=== PATIENT | male | born 1945 | race Caucasian/White ===

== ENCOUNTER 2022-09-05 11:04 | Outpatient (CLI) | payer MEDICARE, SELFPAY ==
--- NOTE | ~2022-09-05 | XR_ITS ---
Lumbosacral Spine: AP and lateral views Clinical History: Pain Findings: There is posterior fusion hardware extending from L4 through S1, bilateral rods and transpe dicular screws present. There is severe degenerative disc narrowing at L3-L4, with moderate degenerat george disc narrowing at L2-L3. Mild to moderate compression fracture deformity of L1 is present. The sa croiliac joints are normally outlined. Impression: Mild to moderate compression deformity of and L1. Posterior fusion changes from L4 through S1, as detailed above. Moderate underlying degenerative spondylosis otherwise. Reviewed, dictated and finalized at location . Impression: Mild to moderate compression deformity of and L1. Posterior fusion changes from L4 through S1, as detailed above. Moderate underlying degenerative spondylosis otherwise.
== END 2022-09-05 11:05 | disposition home or self-care (01) ==
PROVIDERS: Visit Provider Neurological Surgery
DX: M48.062 Spinal stenosis, lumbar region with neurogenic claudication (principal); M47.816 Spondylosis without myelopathy or radiculopathy, lumbar region; Z98.1 Arthrodesis status
CPT/HCPCS: 72100

== ENCOUNTER 2022-09-28 08:16 | Outpatient (CLI) | payer MEDICARE, SELFPAY ==
--- NOTE | 2022-09-28 08:37 | ECG_ITS ---
Measurements Intervals [place] Rate: 84 P: 7 AR: 181 QRS: -22 QRSD: 92 T: -2 QT: 371 QTc: 441 Interpretive Statements SINUS RHYTHM BORDERLINE LEFT AXIS DEVIATION [QRS AXIS < -20] POSSIBLE RIGHT VENTRICULAR CONDUCTION DELAY [RSR (QR) IN V1/V2] NONSPECIFIC T-WAVE ABNORMALITY ABNORMAL ECG NO PREVIOUS ECG AVAILABLE FOR COMPARISON Electronically Signed On 09-28-2022 9:39:20 CDT by Dominic Jolley M.D.
[2022-09-28 09:11] LABS: Appearance Urine Clear (Clear); Bilirubin Urine Negative (Negative); Blood Urine Negative (Negative); Color Urine Yellow (Yellow); Glucose Urine UA Negative (Negative); Ketones Urine Negative (Negative); Leukocyte Esterase Ur Negative LEU/UL (Negative); Nitrate Urine Negative (Negative); Protein Urine Negative (Negative); Urobilinogen Urine 0.2 mg/dL (<2.0)
[2022-09-28 09:20] LABS: Anion Gap 7 mmol/L (8-16); Blood Urea Nitrogen 17 mg/dL (9-20); Calcium 9.2 mg/dL (8.4-10.2); Carbon Dioxide 28 mmol/L (22-30); Chloride 103 mmol/L (98-107); Estimated Glomerular Filt Rate > 60; Glucose 108 mg/dL (65-110); Potassium 4.6 mmol/L (3.4-5.0); Sodium 138 mmol/L (137-145)
[2022-09-28 09:25] LABS: Hemoglobin A1C 5.7 % (<5.7)
[2022-09-28 09:28] LABS: Prothrombin Time 13.6 Seconds (11.1-14.7)
[2022-09-28 09:29] LABS: Partial Thromboplastin Time 31.2 SECONDS (22.3-36.8)
[2022-09-28 09:36] LABS: Add Urine Microscopic? NO
[2022-09-28 09:38] LABS: Hematocrit 39.7 % (42.0-52.0); Hemoglobin 12.3 g/dL (14.0-18.0); Mean Corpuscular Hemoglobin 27.6 pg (26-34); Mean Corpuscular Volume 89.2 fl (80-100); Mean Platelet Volume 9.5 fl (7.4-10.4); Platelet Count Result 306 k/mm3 (150-375); Red Blood Count 4.45 M/mm3 (4.6-6.20); Red Cell Distribution Width 15.1 % (11.5-14.5); White Blood Count 10.9 K/mm3 (4.5-10.0)
== END 2022-09-28 08:17 | disposition home or self-care (01) ==
LOC: ANHSURGERY 08:23
PROVIDERS: PCP Family Medicine; Visit Provider Neurological Surgery
DX: M48.062 Spinal stenosis, lumbar region with neurogenic claudication (principal); I10 Essential (primary) hypertension; Z01.818 Encounter for other preprocedural examination; R94.31 Abnormal electrocardiogram [ECG] [EKG]
CPT/HCPCS: 36415; 80048; 81003; 83036; 85027; 85610; 85730; 86850; 86900; 86901; 93005

== ENCOUNTER 2022-10-04 12:41 | Inpatient (IN) | payer MEDICARE, SELFPAY ==
--- NOTE | 2022-09-23 14:13 | PC.NURSE ---
Report to the Outpatient Waiting Room, entrance under the green pavilion located off [facility], at time 0600 on date __10/04/22 . Planned Procedure Time: _0800 . Time changes happen often and if your time is changed the preop area will call you the afternoon before. - You and your visitor will be asked to self-screen and do not enter if you have any COVID symptoms. - A mask is optional within the hospital at this time. Patients may have clear liquids (water, carbonated beverages, clear teas, apple juice) until 3 hours prior to surgery with a maximum of 20 ounces. - No food from midnight until time of surgery - Infants may have breast milk until 4 hours before surgery, formula 6 hours prior to surgery. - Children will be allowed to drink immediately following surgery. If applicable, please bring a bottle or sippy cup to assist with drinking. Juice, water, soda, and popsicles are readily available. For infants on formula, please bring formula the day of surgery. Pacifiers are allowed. Take the following medications with a SIP of water the morning of surgery: ____AMLODIPINE, DO NOT STOP ANY OF YOUR OTHER PRESCRIPTION MEDICATIONS PRIOR TO SURGERY ?EXCEPT THE FOLLOWING Medications to discontinue per physician ___PLAVIX AND ASPIRIN 7 DAYS PRE OP PER DR CANTU.LAST DOSE 09/26/22 MULTIVITAMINS HOLD 3 DAYS PRE OP.LAST DOSE 10/01/22 Please no make-up, nail vietnamese, hairspray, perfume, deodorant, or body powder the day of surgery. No jewelry (including any body piercings) or valuables the day of surgery, leave them at home. Please take a shower or bath the night before, or the morning of, surgery with an antibacterial soap. Wear comfortable, loose fitting clothing. Children are encouraged to wear pajamas. - Jewelry must be removed prior to entering the operating room. Rings and piercings that are not removed may be cut off. - The hospital will not accept responsibility for valuables. - Please leave all valuables, including medications, at home the day of surgery. If you are going home after surgery, a licensed driver wheelchair must drive you home. - NO public transportation without another adult if you receive anesthesia. - We recommend that an adult stay with you for 24 hours following discharge. - We also recommend that you do not drive, make important decision, drink alcoholic beverages, or take any drugs that were not prescribed by your health care provider for at least 24 hours after your discharge time. For Pediatric surgeries, we recommend two adults accompany the child home. Follow any additional instructions given to you from your surgeon. If you or anyone in your household have experienced Covid symptoms in the past week, please notify your surgeon or the nurse liaison at the phone number below for possible testing. Telephone instructions given to ___PATIENT and asked if any additional questions and then verbalized understanding. Patient advised to call surgeon office or pre surgery nurse liaison [phone] if any additional questions.
[2022-09-23 14:25] VITALS: BMI 26.5
--- NOTE | 2022-10-03 14:49 | WPDANESEPPF ---
Anes - Initial Pre Proc Eval Procedure: Operation Date: 10/04/22 08:00 Proposed Procedures p L2-3 Laminectomy, L3-4 Posterior Lumbar Interbody Fusion - Jon Romero MD Date/Time: 10/03/22 14:49 Surgeon: Jon Romero MD Pre Op Diagnosis: L3,4 junctional stenosis, L2,3 Stenosis Patient Data Age: 77 Gender: M Height: 1.78 m Weight: 83.95 kg Allergies Allergy/AdvReac Type Severity Reaction Status Date / Time No Known Allergies Allergy Verified 10/04/22 06:46 Home Medications Medication Instructions Recorded Confirmed Type amlodipine 5 mg tablet 5 mg PO DAILY 05/16/22 10/04/22 History aspirin 81 mg tablet,delayed 81 mg PO DAILY 05/16/22 10/04/22 History release atorvastatin 80 mg tablet 80 mg PO DAILY 05/16/22 09/23/22 History benazepril 20 mg tablet 20 mg PO DAILY 05/16/22 09/23/22 History clopidogrel 75 mg tablet 75 mg PO DAILY 05/16/22 10/04/22 History hydrocodone 5 mg-acetaminophen 325 1 - 2 tablet PO Q4H PRN pain #30 09/05/22 09/23/22 Rx mg tablet tabs metformin 500 mg tablet,extended 500 mg PO DAILY 09/23/22 09/23/22 History release 24 hr multivitamin 1 tablet PO DAILY 09/23/22 10/04/22 History Patient hx anesthesia problems: none Family hx anesthesia problems: none Results Review: All pre-operative results and documents have been reviewed as part of the pre-operative evaluation. [facility] Past Medical History Medical History (Updated 10/03/22 @ 14:50 by Gregorio Trejo DO) 1st MTP arthritis Allergies Anemia Asthma CAD (coronary artery disease) COPD (chronic obstructive pulmonary disease) Diabetes type 2, controlled Hyperlipidemia Hypertension PVD (peripheral vascular disease) Surgical History Surgical History (Updated 10/03/22 @ 14:50 by Gregorio Treoj DO) H/O endarterectomy History of coronary artery stent placement [id number] History of lumbar fusion (~2020) Family History Family History Other Hypertension Social History Social History Smoking packs per day: 1 Smoking cigarettes per day: 20.0 Years smoked: 20 Smoking pack-years: 20.00 Smoking status: Former smoker Tobacco type: cigarettes Smoking end date: 04/24/16 Alcohol intake: current Drinks per week: 4 Substance use: never Substance use type: does not use Lack of Transportation: No Lack of Food: Never True Current Housing: I Have Housing Concerned About Future Housing: No Difficulty Paying Gas/Electric Bills: No Difficulty Paying for Meds: No Currently Unemployed: No Education: Decline to Answer Difficulty w/ Childcare or Family Care: No Living arrangements: with family Spiritual care concerns: No Anes - Eval Final PreProcedure Day of Procedure 10/03/22 14:49 Patient weight: overweight Heart: regular rate and rhythm Lungs: clear to auscultation Airway: Mallampati scale class II Neurological: alert and oriented Last oral intake: >/= 8 hours ASA classification: III Emergent: no Anesthetic plan: proceed Anesthesia type and monitoring: general ETT and standard monitoring Results Review: All pre-operative results and documents have been reviewed as part of the pre-operative evaluation. Informed Consent: The patient's anesthetic plan and its attendant risks and benefits were discussed with the patient/family/POA. Questions were solicited and answers provided to the satisfaction of the patient/family/POA.
[2022-10-04] VITALS (12 sets, daily range): BP systolic 95–136; BP diastolic 53–93; PULSE 75–105; RESP 12–18; TEMP 36.2–36.9; O2SAT 94–100; BMI 26.7
--- NOTE | ~2022-10-04 | XR_ITS ---
XR fluoroscopy no charge Pain management procedure TECHNIQUE: Fluoroscopy used during laminectomy performed by [Jon Romero MD] on 10/04/2022 . 3 seconds of fluoroscopy with 2 images captured. FINDINGS: There are changes of lumbar fusion at L3-S1 with prosthetic disc devices at L3-4, L4-5 and L5-S1. Correlate with procedure note. IMPRESSION: Fluoroscopy used during laminectomy and lumbar spine fusion procedure. Reviewed, dictated and finalized at location L. IMPRESSION: Fluoroscopy used during laminectomy and lumbar spine fusion procedu re.
[2022-10-04] MEDS: LACTATED RINGERS 1,000 ML 30 ML IV CONT ×2 (06:35→11:24)
[2022-10-04 06:46] LABS: Glucose Point of Care 112 mg/dl (65-105)
--- NOTE | 2022-10-04 08:10 | PM.IMHP ---
H&P: HPI History of Present Illness Date/Time: 10/04/22 08:10 Chief Complaint: Back and leg pain Narrative: Toni is a 77-year-old gentleman with back and leg pain related to junctional stenosis at L3-4 and stenosis at L2-3 who presents for L3-4 posterior lumbar interbody fusion L2-3 laminectomy. He has not changed appreciably since we last saw him. He does not have specific muscle group weakness or dermatomal numbness. Is not having bowel or bladder difficulty. Review of Systems Review of Systems: Patient denies shortness of breath, cough, fever, chills, nausea, vomiting, weight loss, weight gain, chest pain, dysuria. He has back and leg pain as above. His review of systems is otherwise negative on 12 systems except as noted elsewhere. [facility] Past Medical History Medical History (Updated 10/03/22 @ 14:50 by Gregorio Trejo DO) 1st MTP arthritis Allergies Anemia Asthma CAD (coronary artery disease) COPD (chronic obstructive pulmonary disease) Diabetes type 2, controlled Hyperlipidemia Hypertension PVD (peripheral vascular disease) Surgical History Surgical History (Updated 10/03/22 @ 14:50 by Gregorio Trejo DO) H/O endarterectomy History of coronary artery stent placement [id number] History of lumbar fusion (~2020) Family History Family History Other Hypertension Social History Social History Smoking packs per day: 1 Smoking cigarettes per day: 20.0 Years smoked: 20 Smoking pack-years: 20.00 Smoking status: Former smoker Tobacco type: cigarettes Smoking end date: 04/24/16 Alcohol intake: current Drinks per week: 4 Substance use: never Substance use type: does not use Lack of Transportation: No Lack of Food: Never True Current Housing: I Have Housing Concerned About Future Housing: No Difficulty Paying Gas/Electric Bills: No Difficulty Paying for Meds: No Currently Unemployed: No Education: Decline to Answer Difficulty w/ Childcare or Family Care: No Living arrangements: with family Spiritual care concerns: No Meds Home Medications and Allergies Home Medications Medication Instructions Recorded Confirmed Type amlodipine 5 mg tablet 5 mg PO DAILY 05/16/22 10/04/22 History aspirin 81 mg tablet,delayed 81 mg PO DAILY 05/16/22 10/04/22 History release atorvastatin 80 mg tablet 80 mg PO DAILY 05/16/22 09/23/22 History benazepril 20 mg tablet 20 mg PO DAILY 05/16/22 09/23/22 History clopidogrel 75 mg tablet 75 mg PO DAILY 05/16/22 10/04/22 History hydrocodone 5 mg-acetaminophen 325 1 - 2 tablet PO Q4H PRN pain #30 09/05/22 09/23/22 Rx mg tablet tabs metformin 500 mg tablet,extended 500 mg PO DAILY 09/23/22 09/23/22 History release 24 hr multivitamin 1 tablet PO DAILY 09/23/22 10/04/22 History Allergies Allergy/AdvReac Type Severity Reaction Status Date / Time No Known Allergies Allergy Verified 10/04/22 06:46 Vital Signs Vital Signs - 24 hr 10/04/22 06:05 Temperature 97.2 F L Pulse Rate 90 Respiratory Rate 16 Blood Pressure 136/77 Pulse Oximetry 100 Oxygen Delivery Room Air Exam Narrative: Strength is 5/5 in all muscle groups of the bilateral lower extremities. Sensation is intact to light touch throughout the lower extremities. Breathing is nonlabored Regular rate and rhythm Assessment and Plan Assessment and plan (1) Lumbar stenosis with neurogenic claudication: Code(s): M48.062 - Spinal stenosis, lumbar region with neurogenic claudication Status: Acute (2) Lumbar spondylosis: Code(s): M47.816 - Spondylosis without myelopathy or radiculopathy, lumbar region Status: Acute (3) Status post lumbar spinal fusion: Code(s): Z98.1 - Arthrodesis status Status: Acute Plan Toni is a 77-year-old gentleman with back and leg pain related
--- NOTE | 2022-10-04 08:12 | WPDHPUPDATE1 ---
History and Physical Update Update Date/Time: 10/04/22 08:12 History and Physical has been reviewed, including an updated exam of the patient. There are NO changes in the patient's condition. Risks, benefits, and alternatives have been discussed and questions answered. Patient agrees to proceed with procedure.
[2022-10-04] MEDS: ceFAZolin 2 GM/D5W 50 ML 2 GM/50 ML BAG IVPB (08:29)
[2022-10-04] MEDS: LIDO 1%/EPINEPHRINE 1:100,000 50 ML VIAL 20 ML INFILTRATE (09:47)
--- NOTE | 2022-10-04 11:26 | W.PM.PROC2 ---
Procedure Note - Detailed Date of Procedure 10/04/22 Pre-op Diagnosis L3,4 junctional stenosis, L2,3 Stenosis Post-op Diagnosis Same Procedure Performed L2-3 and L3-4 complete laminectomy, L3-4 complete diskectomy and interbody arthrodesis utilizing titanium interbody devices and local autograft, L3-4 pedicle screw instrumentation with attachment previous instrumentation below Surgeon Jon Romero MD Clerk [employer] [address] Susan Anesthesia General Description of Procedure Patient was brought to the operating room in the supine position, was sedated, intubated placed under general anesthesia in routine fashion. He was then turned into the prone position on Cyril frame. The of operation is back was examined, marked for incision, prepped and draped in routine sterile fashion. Incision was marked over the L2-3 5 spinous processes in the midline. This area was injected with 0.5% lidocaine with [id number] epinephrine. Intravenous antibiotics given prior to incision. Incision was made with a 10 blade scalpel down to the lumbodorsal fascia. A subperiosteal dissection of the muscle soft tissue with the spinous process and lamina at L2-3 and L3-4 was performed with a subperiosteal elevator and Bovie cautery. A verifying x-rays obtained to verify the level of operation. The L2 and L3 spinous processes were removed with Sushila rongeur. Kerrison punches, curved curette and a Leksell rongeur were used to remove lamina in the midline to the soft contents of the canal were encountered. At L3-4 Midas-Jayesh drill was used to resect the pars bilaterally. The inferior articular process facet of L3 could then be removed bilaterally. These +spinous processes were morselized for later use as interbody autograft. Kerrison punches and curved curettes were used to define a plane with the dura and removed bone and ligament flush with the pedicle and through the foramina widely decompressing exiting nerve roots. With the thecal sac retracted and protected the disc spaces under bilaterally using 11 blade scalpel. Scrapers a very sizes, curettes of various configurations, pituitary rongeur and a rasp were used to remove as much cartilaginous endplate and disc material as possible down to bleeding cortical flat surfaces on the opposing bones. The disc spaces in size at 8 mm interbody devices were chosen and filled with local autograft bone. The disc space was likewise filled with local autograft bone medially and anteriorly. The interbody devices were then placed with the mm countersink within the disc space bilaterally. Pedicle screws mentation was then performed at L3 by observing and palpating the pedicle awl hole was made and superior articular process of the pedicle using Midas Jayesh drill. The pedicle was then cannulated pedicle probe, checked for continuity with the ball probe, tapped with 5.5 mm tap and 6.5 x 50 mm screw was placed in each pedicle. Lateral connectors were placed between L4-L5 and secured in position using the appropriate caps. Rods placed into the screw heads and to the lateral connector and secured in position using the appropriate caps. These were then all definitively tightened to torque and anti torque device. A verifying x-rays obtained read by good position of the instrumentation was confirmed. Wound was then copiously irrigated with bacitracin irrigation all bleeding stopped bipolar and Bovie cautery and Gelfoam powder. A medium Hemovac drain was then left in the subfascial position buried at the inferior right of the incision. The was then closed in layered fashion with 2-0 Vicryl interrupted sutures in the lumbodorsal fascia and Addie's layer. 3-0 Vicryl buried interrupted sutures were placed in the dermis the skin was closed with a running 4-0 Monocryl subcuticular stitch and dressed with Dermabond. The patient was loud wake up in the operating room was taken to the recovery room in stable condition. There were no immediate complications this oper
[2022-10-04 11:33] LABS: Glucose Point of Care 159 mg/dl (65-105)
[2022-10-04] MEDS: fentaNYL CITRATE INJ (*CRX) 100 MCG/2 ML VIAL 25 MCG IV PUSH ×4 (11:59→12:24)
--- NOTE | 2022-10-04 12:50 | ADMGEN ---
This patient, Toni Silverman, was admitted to Medical Room 256-. Patient/family oriented to hospital policies and general routines including ID bracelet, bed and alarms, visiting hours, pain management, procedures, bathroom and other care routines, personal items, smoking policy, room service/diet, and visiting hours. Information on how to activate the Rapid Response Team has been discussed. Patient/Family are encouraged to report perceived risks to care and to ask questions if they do not understand what they are told or what they should do.
[2022-10-04] MEDS: HYDROcodone/acetaminophen (*CRX) 10-325 MG TABLET 1 TAB PO ×3 (13:26→21:41)
--- NOTE | 2022-10-04 13:44 | PCOTNOTE ---
Attempted OT evaluation, patient is currently being admitted to floor, will follow.
[2022-10-04] MEDS: CYCLOBENZAPRINE HCL 10 MG TABLET PO (15:08)
--- NOTE | 2022-10-04 16:11 | PCPTNOTE ---
On 10/04/22, the student, [Lou Lopez], provided care and completed [facility] documentation on this patient. I have reviewed the student's documentation and agree with the findings.
[2022-10-04] MEDS: ceFAZolin 1 GM/NS 50 ML 1 GM/50 ML BAG IVPB (16:56)
[2022-10-04] MEDS: DOCUSATE SODIUM 100 MG CAPSULE PO (20:03)
[2022-10-05] MEDS: ceFAZolin 1 GM/NS 50 ML 1 GM/50 ML BAG IVPB ×2 (00:25→08:00)
[2022-10-05] MEDS: CYCLOBENZAPRINE HCL 10 MG TABLET PO (01:15)
[2022-10-05] MEDS: HYDROcodone/acetaminophen (*CRX) 10-325 MG TABLET 1 TAB PO ×2 (02:20→08:15)
[2022-10-05] MEDS: ATORVASTATIN 40 MG TABLET 80 MG PO (09:00)
[2022-10-05] MEDS: amLODIPine BESYLATE 5 MG TABLET PO (09:00)
[2022-10-05] MEDS: MULTIVITAMINS THERAPEUTIC TAB (*BKC) 1 TABLET PO (09:00)
[2022-10-05] MEDS: DOCUSATE SODIUM 100 MG CAPSULE PO (09:00)
[2022-10-05] MEDS: metFORMIN HCL XR 500 MG TAB.SR.24H PO (09:00)
[2022-10-05] MEDS: lisinopriL 20 MG TABLET PO (09:00)
[2022-10-05] MEDS: HYDROcodone/acetaminophen (*CRX) 5-325 MG TABLET 1 TAB PO (13:19)
--- NOTE | 2022-10-05 19:36 | WPDNEUROSGPN ---
Progress Note: A&P Assessment and Plan (1) Status post lumbar spinal fusion: Code(s): Z98.1 - Arthrodesis status Status: Acute Assessment and Plan: status post L2-3 lami, L3-4 PLIF on 10/04 Plan: -Awaiting spontaneous voiding -Once he voids independently, anticipate discharge home, possibly this afternoon -Continue hemovac until ready to discharge home -Restrictions and wound care reviewed with the patient and his Subjective Date/time seen: 10/05/22 19:36 Interval history: Doing very well with minimal back pain. Has ambulated in halls and on stairs. Tolerating PO. Awaiting spontaneous voiding after vogt catheter was removed at 7am this morning. Would like to go home today if possible Review of Systems Review of Systems: All systems reviewed & are unremarkable except as noted in HPI and below Exam Narrative: AOx4 Full strength in lower extremities Sensation intact to light touch Dressing c/d/i Objective Data Vital Signs Vital Signs: Vital Signs - 24 hr 10/04/22 20:27 Temperature 97.8 F Pulse Rate 105 H Respiratory Rate 16 Blood Pressure 109/63 Pulse Oximetry 97 Intake/Output Intake/Output: Intake & Output 10/02/22 10/03/22 10/04/22 10/05/22 23:59 23:59 23:59 23:59 Intake Total 2690 Output Total 1230 Balance 1460 Meds/Results Medications: Active Medications Generic Name Dose Route Start Last Admin Trade Name Freq PRN Reason Stop Dose Admin Hydrocodone Bitart/Acetaminophen 1 tab 10/04/22 12:41 Hydrocodone/Acetaminophen (*Crx) 5-325 Mg Tablet PO Q4H PRN Mild Pain (1-3) Hydrocodone Bitart/Acetaminophen 1 tab 10/04/22 12:41 10/04/22 21:41 Hydrocodone/Acetaminophen (*Crx) 10-325 Mg Tablet PO 1 tab Q4H PRN Administration Moderate Pain (4-6) Al Hydrox/Mg Hydrox/Simethicone 20 ml 10/04/22 12:41 Mag Hydrox/Al Hydrox/Simeth 30 Ml Udc PO Q4H PRN Indigestion/Heartburn Amlodipine Besylate 5 mg 10/05/22 09:00 Amlodipine Besylate 5 Mg Tablet PO DAILY [facility] Atorvastatin Calcium 80 mg 10/05/22 09:00 Atorvastatin 40 Mg Tablet PO DAILY DESIRAE Bisacodyl 10 mg 10/04/22 12:41 Bisacodyl 10 Mg Suppository RECTAL DAILY PRN Constipation Cyclobenzaprine HCl 10 mg 10/04/22 12:41 10/04/22 15:08 Cyclobenzaprine Hcl 10 Mg Tablet PO 10 mg TID PRN Administration Muscle Spasms Docusate Sodium 100 mg 10/04/22 21:00 10/04/22 20:03 Docusate Sodium 100 Mg Capsule PO 100 mg Q12HR DESIRAE Administration Hydromorphone HCl 0.5 mg 10/04/22 12:41 Hydromorphone Hcl Inj (*Crx) 1 Mg/Ml Syr IV PUSH Q2H PRN Pain Rated 7-10 Cefazolin Sodium 1 gm in 50 mls @ 100 mls/hr 10/04/22 16:00 10/05/22 00:25 Ancef 1 Gm/Ns 50 Ml IVPB 100 mls/hr Q8H DESIRAE Administration Lisinopril 20 mg 10/05/22 09:00 Lisinopril 20 Mg Tablet PO 11/04/22 08:59 DAILY [facility] Metformin HCl 500 mg 10/05/22 09:00 Metformin Hcl Xr 500 Mg Tab.Sr.24h PO DAILY [facility] Multivitamins Therapeutic 1 tablet 10/05/22 09:00 Multivitamins Therapeutic Tab (*Bkc) PO DAILY [facility] Ondansetron HCl 4 mg 10/04/22 12:41 Ondansetron Inj 4 Mg/2 Ml Vial IV PUSH Q8H PRN Nausea And Vomiting Senna/Docusate Sodium 1 tab 10/04/22 12:41 Senna/Docusate Sodium Tablet PO HS PRN Constipation Radiology Results: ITS Impressions Fluoroscopy 10/04/22 11:25 IMPRESSION: Fluoroscopy used during laminectomy and lumbar spine fusion procedure.
--- NOTE | 2022-10-05 19:49 | PC.NURSE ---
Paper documentation exists on this patient due to [employer] downtime on 10/05/22 from [id number] to [id number] .
--- NOTE | 2022-10-24 17:33 | P.DS_ITS ---
DS: Admitting Diagnosis Discharge Date 10/05/22 Admitting Diagnosis L3,4 junctional stenosis, L2,3 Stenosis DS: Discharge Diagnosis Discharge Diagnosis Plan Same DS: Summary Hospital Course Hospital Course: Mr. Silverman presented on October 04 for surgical intervention; please see the opera tive note for more details. He was transferred to the floor after surgery. He ambulated the same afternoon without difficulty. He was doing well with minimal back pain. His vogt was removed on POD1, and he voided spontaneously by the afternoon. He was ready for discharge on POD1. Status at Discharge Functional status at discharge: independent ambulation Time Spent with Patient Time attestation: Total time spent providing and/or coordinating discharge services: Time spent: Less than 30 minutes Exam Narrative: AOx4 Full strength in lower extremities Sensation intact to light touch Dressing c/d/i ? Discharge Plan Discharge Attending physician on discharge: Jon Romero Consulting providers: Antione Moody Discharging Clinician: Cheryl Motta Patient Disposition: Home, Self-Care Activity: other - see discharge instructions Diet: regular Wound Care Instructions: other - see discharge instructions Discharge Instructions: OK to shower , may remove dressing and leave open to air, do not submerge incision under water for 4 weeks, no lotions on incision Dr. Romero office will call to schedule follow up appointment Paper scripts given due to downtime Patient Instructions: Antibiotic Form, Clopidogrel (By mouth) Stand Alone Forms: General Discharge Information Follow-up/Referrals: Jon Romero MD [Physician] - Discharge Medications: New bisacodyl 10 mg Suppository 10 mg RECTAL DAILY PRN (Reason: Constipation) 0RF cyclobenzaprine 10 mg Tablet 10 mg PO TID PRN (Reason: Muscle Spasms) 0RF docusate sodium 100 mg Capsule 100 mg PO Q12HR 0RF multivitamin with folic acid [Thera] 400 mcg Tablet 1 tablet PO DAILY 0RF sennosides-docusate sodium [Senokot-S] 8.6-50 mg Tablet 1 tab PO HS PRN (Reason: Constipation) 0RF alum-mag hydroxide-simeth [Mag-Al Plus] 200-200-20 mg/5 mL Suspension 20 ml PO Q4H PRN (Reason: Indigestion/Heartburn) 0RF Continued amlodipine 5 mg tablet 5 mg PO DAILY atorvastatin 80 mg tablet 80 mg PO DAILY benazepril 20 mg tablet 20 mg PO DAILY Patient Comments: TAKES 40 MG metformin 500 mg tablet extended release 24 hr 500 mg PO DAILY multivitamin [One A Day Vitamin] Tablet 1 tablet PO DAILY No Action clopidogrel 75 mg tablet 75 mg PO DAILY aspirin 81 mg tablet,delayed release (DR/EC) 81 mg PO DAILY hydrocodone-acetaminophen 5-325 mg tablet 1 - 2 tablet PO Q4H PRN (Reason: pain) Qty: 30 0RF Date of admission: 10/04/22 12:41 Primary Care Provider: Linden Schultz Admitting Provider: Jon Romero Attending physician on admission: Cheryl Motta Condition: Stable
== END 2022-10-05 15:30 | disposition home or self-care (01) | DRG 460 ==
LOC: ANH2MED 12:46
PROVIDERS: Admitting Provider Neurological Surgery; PCP Family Medicine; Visit Provider Neurological Surgery
PROC: 0SG00AJ Fusion of Lumbar Vertebral Joint with Interbody Fusion Device, Posterior Approach, Anterior Column, Open Approach (ICD-10-PCS; CPT 22612; principal; 2022-10-04 08:00)
DX: M48.062 Spinal stenosis, lumbar region with neurogenic claudication (principal); M47.816 Spondylosis without myelopathy or radiculopathy, lumbar region; D64.9 Anemia, unspecified; I25.10 Atherosclerotic heart disease of native coronary artery without angina pectoris; E11.9 Type 2 diabetes mellitus without complications; J44.9 Chronic obstructive pulmonary disease, unspecified; I73.9 Peripheral vascular disease, unspecified; E78.5 Hyperlipidemia, unspecified; I10 Essential (primary) hypertension; Z95.5 Presence of coronary angioplasty implant and graft; Z87.891 Personal history of nicotine dependence
CPT/HCPCS: 82948; 97161; 97165; 97530; 97535; 99199; A9270; C1713; J0690; J1100; J2250; J2270; J2405; J2704; J2710; J3010; J7120

== ENCOUNTER 2022-11-14 10:33 | Outpatient (CLI) | payer MEDICARE, SELFPAY ==
--- NOTE | ~2022-11-14 | XR_ITS ---
Lumbosacral Spine: AP and lateral views Clinical History: Arthrodesis COMPARISON: 09/05/2022 Findings: There is posterior fusion hardware, which now extends from L3 through S1, with bilateral ro ds and transpedicular screws present. There is a new interbody fusion device at the L3-L4 disc space. There is stable interbody fusion devices at the L4-L5 and L5-S1 disc spaces. There is moderate degen erative disc narrowing at L2-L3. There is chronic compression deformity of L1, unchanged. The sacroil iac joints are normally outlined. Impression: Posterior fusion from L3 through S1, as detailed above. Chronic compression deformity of L1, unchanged. Reviewed, dictated and finalized at location M. Impression: Posterior fusion from L3 through S1, as detailed above. Chronic compression deformity of L1, unchanged.
== END 2022-11-14 10:34 | disposition home or self-care (01) ==
PROVIDERS: PCP Family Medicine; Visit Provider Neurological Surgery
DX: Z98.1 Arthrodesis status (principal)
CPT/HCPCS: 72100